=== PATIENT | female | born 1980 ===

== ENCOUNTER 2023-04-30 05:11 | Day surgery (SDC) | payer OTHER ==
[~2023-04-30] VITALS: Ht 165.1 cm; Wt 99.8 kg
[~2023-04-30 05:11] MED LIST: ACID REDUCER20 M1 PO; FARXIGA5 MG PO; JENTADUETO 2.51 EACH PO; SYNTHROID150 MCG PO
[2023-04-30] MEDS ORDERED: MORGIDOX100 MG PO (08:46)
[2023-04-30] MEDS ORDERED: NAPR500T14 PO (08:46)
== END 2023-04-30 14:15 | disposition home or self-care (01) ==
LOC: CIR.AMB 05:11
PROVIDERS: ATTEND Obstetrics & Gynecology
DX: N93.8 Other specified abnormal uterine and vaginal bleeding (principal); N84.0 Polyp of corpus uteri; N92.5 Other specified irregular menstruation; D25.0 Submucous leiomyoma of uterus; I10 Essential (primary) hypertension; Z20.822 Contact with and (suspected) exposure to COVID-19